=== PATIENT | male | born 1950 | race African-American/Black ===

== ENCOUNTER 2019-05-03 14:22 | Emergency (ER) | payer OTHER ==
[~2019-05-03] VITALS: Ht 180.3 cm; Wt 72.6 kg
--- NOTE | 2019-05-03 14:25 | NUR ---
ED Nurse Note: not found in waiting area.
[2019-05-03] MEDS ORDERED: ALBUTEROL2.5 MG/3 M INH (14:35)
[2019-05-03 15:00] VITALS: BP 158/92
[2019-05-03] MEDS ORDERED: traMADol 50mg tab ORAL ONE (15:00)
--- NOTE | 2019-05-03 15:05 | NUR ---
ED Nurse Note:pt. came s/p fall and c/o right side of body pain, pain med and x-rays done
--- NOTE | 2019-05-03 15:13 | Emergency Room Report ---
History of Present Illness General Chief Complaint: Multiple Trauma/Fall Source: Patient Present Illness HPI 68-year-old male presents to the emergency department complaining of 8 out of 10 severity pain localized to the posterior right shoulder as well as the right hip posteriorly status post mechanical trip and fall last night. Patient denies hitting his head he denies having loss of consciousness. Patient denies midline neck or back pain. Patient reports he is ambulatory however he does have pain with ambulation. He denies open wounds or bleeding. He denies inability to bear weight. Denies numbness tingling or loss of sensation or gross motor movements of the extremities, incontinence of bowel or bladder. Denies CP, Palpitations, LOC, AMS, dizziness, Changes in Vision, weakness or a sudden severe headache. Allergies: Coded Allergies: ASPIRIN (Verified Allergy, Unknown, 05/03/19) Patient History Past Medical History: see triage record Past Surgical History: none Pertinent Family History: none Reviewed Nursing Documentation: PMH: Agreed; PSxH: Agreed Nursing Documentation-PMH Past Medical History: No History, Except For Hx Asthma: Yes Review of Systems All Other Systems: negative except mentioned in HPI Physical Exam Vital Signs Date Time Temp Pulse Resp B/P (MAP) Pulse Ox O2 Delivery O2 Flow Rate FiO2 05/03/19 14:32 98.1 89 16 158/92 (114) 95 Room Air Sp02 EP Interpretation: reviewed, normal General Appearance: no apparent distress, alert, GCS 15, non-toxic Head: normocephalic, atraumatic Eyes: bilateral eye normal inspection, bilateral eye PERRL ENT: hearing grossly normal, normal voice Neck: full range of motion, no bony tend Respiratory: lungs clear, normal breath sounds, speaking full sentences Cardiovascular #1: regular rate, rhythm Gastrointestinal: non tender, soft Musculoskeletal: back normal, gait/station normal, normal range of motion, tender - TTP to the lateral and posterior aspect of the right hip, no leg length discrepancy, TTP to the posterior right shoulder, no bruises. pain with raising arm to shoulder height, no clicking or step-pff, no midline spinous process ttp in the neck or back. ambulatory without assistance. Neurologic: alert, oriented x3, responsive, motor strength/tone normal, sensory intact, speech normal, grossly normal Psychiatric: judgement/insight normal Skin: normal color, no rash, warm/dry, well hydrated Medical Decision Making PA Attestation Dr. Feliciano is my supervising Physician whom patient management has been discussed with. Diagnostic Impression: Primary Impression: Contusion of hip, right Qualified Codes: S70.01XA - Contusion of right hip, initial encounter Additional Impression: Contusion of right shoulder Qualified Codes: S40.011A - Contusion of right shoulder, initial encounter ER Course Pt. presents to the ED c/o minimal [place] so dominant this is just like something superficial Ddx considered but are not limited to Fracture, dislocation, contusion, Sprain/ Strain/Spasm, Epidural abscess, Neoplastic mets. Vital signs: are WNL, pt. is afebrile H&PE are most consistent with musculoskeletal injury will perform imaging to r/ o fractures/dislocations. ORDERS: - X-ray [ ] - negative for fx, Dislocation, or significant soft tissue injury, per preliminary read in ED, and signed by ADA Thomas, my supervising physician has reviewed, and agrees with my interpretation. ED INTERVENTIONS: - [ ] DISCHARGE: At this time pt. is stable for d/c to home. Will provide printed patient care instructions, and any necessary prescriptions. Care plan and follow up instructions have been discussed with the patient prior to discharge. Other X-Ray Diagnostic Results Other X-Ray Diagnostic Results #1: X-Ray ordered: Right Hip with AP Indication: Pain EP Interpretation: Yes ADA Xray: Interpretation reviewed, by supervising MD, and agrees with findings. Interpretation: no dislocation, no soft tissue swelling, no fractures Impression: No acute disease Electronically Signed by: Radha Thomas PA-C Other X-Ray Diagnostic Results #2: X-Ray ordered: Right shoulder # of Views/Limited Vs Complete: 3 View Indication: Pain EP Interpretation: Yes ADA Xray: Interpretation reviewed, by supervising MD, and agrees with findings. Interpretation: no dislocation, no soft tissue swelling, no fractures Impression: No acute disease Electronically Signed by: Radha Thomas PA-C Last Vital Signs Date Time Temp Pulse Resp B/P (MAP) Pulse Ox O2 Delivery O2 Flow Rate FiO2 05/03/19 14:32 98.1 89 16 158/92 (114) 95 Room Air Status: improved Disposition: HOME, SELF-CARE Condition: Stable Patient Instructions: Contusion, [id number], Shoulder Pain, [id number] Additional Instructions: Take medications as directed. Follow up with an [facility] F[facility]DER in 3-5 days, even if your symptoms have resolved. If symptoms persist additional imaging and treatment may be required at the discretion of your PCP or Ortho Specialist. --Please review list of primary care clinics, if you do not already have a primary care provider who can give you an Orthopedic Referral. Return sooner to ED if new symptoms occur, or current symptoms become worse. Do not drink alcohol, drive, or operate heavy machinery while taking Tramadol ( Ultram) as this may cause drowsiness. - Please note that this Emergency Department Report was dictated using [employer] tender technology software, occasionally this can lead to erroneous entry secondary to interpretation by the dictation equipment. Radha Thomas May 03, 2019 15:13
[2019-05-03] MEDS ORDERED: TYLENOL EXTRA500 MG ORAL (15:53)
--- NOTE | 2019-05-03 16:00 | NUR ---
ER DISCHARGE NOTE: Patient is cleared to be discharged per ERMD, pt is aox4, on room air, with stable vital signs. pt was given dc and prescription instructions, pt was able to verbalize understanding, pt is able to ambulate with steady gait. pt took all belongings.
--- NOTE | 2019-05-03 16:02 | Diagnostic Imaging Report ---
Indication: Right shoulder pain COMPARISON: None Findings: 3 views of the right shoulder were obtained. No acute fractures, malalignment, erosions or periostitis are identified. Bones are osteopenic. Soft tissues are unremarkable. Impression: Negative for acute injury
--- NOTE | 2019-05-03 16:04 | Diagnostic Imaging Report ---
Indications: hip pain Findings: Two views of the right hip were obtained. No acute fracture is demonstrated. Alignment of the hip is within normal limits. Soft tissues are unremarkable. There is a nonspecific rounded sclerotic focus in the top of the right ilium which may be a bone island. One or possibly 2 additional sclerotic foci also noted one near the right acetabulum. Impression: Negative for acute injury. Incidental sclerotic foci within the right ilium and acetabular region. This could be bone islands but are nonspecific and consider further evaluation with cross-sectional imaging or bone scan.
[2019-05-03 16:28] VITALS: BP 158/92
== END 2019-05-03 16:00 | disposition home or self-care (01) ==
LOC: EMR 15:05
DX: S40.011A Contusion of right shoulder, initial encounter (principal); S70.01XA Contusion of right hip, initial encounter; W01.0XXA Fall on same level from slipping, tripping and stumbling without subsequent striking against object, initial encounter; Y92.9 Unspecified place or not applicable; Z88.6 Allergy status to analgesic agent
CPT/HCPCS: 99284